=== PATIENT | female | born 1970 | race African-American/Black ===

== ENCOUNTER 2019-06-02 17:56 | Emergency (ER) | payer OTHER ==
[~2019-06-02] VITALS: Ht 152.4 cm; Wt 83.9 kg
[~2019-06-02 17:56] MED LIST: CEPH-264 PO
[2019-06-02 18:55] VITALS: BP 136/81
[2019-06-02] MEDS ORDERED: KETOROLAC 30 MG/ML VIAL. IM STA (19:46)
[2019-06-02] MEDS ORDERED: ORPH100T PO (19:51)
[2019-06-02] MEDS ORDERED: IBUP-1027 PO (19:51)
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
[2019-06-02] MEDS ORDERED: ORPHENADRINE CITRATE 60 MG/2 ML VIAL. IM ONE (20:00)
== END 2019-06-02 19:58 | disposition home or self-care (01) ==
LOC: ER 17:56
DX: M54.5 Low back pain (principal); I10 Essential (primary) hypertension; Z98.51 Tubal ligation status; V43.52XA Car driver injured in collision with other type car in traffic accident, initial encounter; Y93.89 Activity, other specified; Y92.410 Unspecified street and highway as the place of occurrence of the external cause; Y99.8 Other external cause status
CPT/HCPCS: 99283